=== PATIENT | female | born 1950 | race Caucasian/White ===

== ENCOUNTER 2022-10-03 18:00 | Emergency (ER) | payer OTHER, SELFPAY ==
[2022-10-03 18:05] VITALS: BP 176/86; PULSE 98; RESP 16; TEMP 36.7; O2SAT 98; BMI 18.0
--- NOTE | 2022-10-03 18:29 | ED.SKABFB ---
HPI - Skin/Abscess/Foreign Bdy General Chief complaint: Skin/Abscess/Foreign Body Stated complaint: right thumb injury/thinks infected Time Seen by Provider: 10/03/22 18:07 Source: patient Mode of arrival: Ambulatory History of Present Illness HPI narrative: 72-year-old woman with no significant medical history no provider in town and sees a care provider through [facility] comes in complaining of some pain on the right side. She initially noticed some swelling on the pad of the thumb on September 20 became more tender more swollen eventually seem to resolve with the resolution of the swelling she is having some peeling of the skin of her distal thumb. Over the last 2 days she is noticed slight increase in pain, slight redness and now has some mild discoloration under the nail bed just in the area of the cuticle of the thumb. She is very worried about the skin peeling, she notes that today she maybe had a low-grade fever. No joint pain, vesicular lesions, other rashes, axillary adenopathy. No cough, chest pain, palpitations, nausea, vomiting, abdominal pain. Related Data Previous Rx's Medication Instructions Recorded cephalexin 500 mg capsule 500 mg PO TID #20 caps 10/03/22 Allergies Allergy/AdvReac Type Severity Reaction Status Date / Time acetaminophen [From Vicodin] Allergy Verified 10/03/22 18:30 bee venom protein (honey bee) Allergy Verified 10/03/22 18:30 codeine Allergy Verified 10/03/22 18:30 cyclobenzaprine Allergy Verified 10/03/22 18:30 gentamicin Allergy Verified 10/03/22 18:30 hydrocodone [From Vicodin] Allergy Verified 10/03/22 18:30 iodine Allergy Verified 10/03/22 18:30 naproxen Allergy Verified 10/03/22 18:30 Review of Systems Review of Systems Narrative: Remainder of complete review of systems is otherwise unremarkable except for that included in the HPI. Patient History Social History Smoking Status: Never smoker Smoking Status: Never smoker Substance Use Type: does not use Exam Initial Vital Signs Initial Vital Signs: Vital Signs Temperature 98.1 F 10/03/22 18:05 Pulse Rate 98 H 10/03/22 18:05 Respiratory Rate 16 10/03/22 18:05 Blood Pressure 176/86 H 10/03/22 18:05 Pulse Oximetry 98 10/03/22 18:05 Oxygen Delivery Method 10/03/22 18:05 General: Alert appropriate in no acute distress Respiratory: Able to speak in full sentences, no obvious respiratory distress Skin: No obvious rashes, warm and dry Neurologic: Grossly intact no obvious asymmetries or abnormalities Psych: appropriate insight and affect, cooperative Extremity: Pad of the right thumb is very minimally erythematous came mild skin scaling. There is 2 mm area of discoloration just at the cuticle of the thumb. There is no lymphangitic streaking there is only minimal swelling. No axillary adenopathy. Course Orders Ordered: Discontinued Medications Cefazolin Sodium (Cephalexin 250 Mg Prepack) 1 bottle MISC SEEINSTR ONE Stop: 10/03/22 18:43 Last Admin: 10/03/22 18:58 Dose: 1 bottle Cephalexin HCl (Cephalexin 250 Mg Capsule) 500 mg PO NOW ONE Stop: 10/03/22 18:43 Last Admin: 10/03/22 18:57 Dose: 500 mg Vital Signs Vital signs: Vital Signs - 8 hr 10/03/22 18:05 10/03/22 19:04 Temperature 98.1 F Pulse Rate 98 H 75 Respiratory Rate 16 18 Blood Pressure 176/86 H Pulse Oximetry 98 98 Oxygen Delivery Method Room Air Room Air MDM - Skin/Abscess/Foreign Bdy MDM Narrative Medical decision making narrative: 72-year-old woman comes in with right thumb swelling concern for infection. Clinical exam is most consistent with a felon and she is started on Keflex with instructions to follow-up with hand surgery if things are not improving or the emergency department if she has additional issues. Differential diagnosis: Herpetic gay, subcutaneous abscess, synovial space infection(no joint tenderness or swelling on physical exam), septic arthritis, necrotizing fasciitis Findings reviewed with patient, because tomorrow will likely be a holiday with difficult pharmacy access she is given antibiotics in the emergency department enough to last through tomorrow with written prescription young that She is safe for discharge home Discharge Plan Departure Patient Disposition: Home Clinical Impression: Felon of finger of right hand Instructions: DI for Felon Activity Restrictions/Additional Instructions: Thank you for coming in today It appears that you have an infection deep in the soft portion of the tip of your finger. I am going to have you take 7 days of Keflex. 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 With the capsules that are going home with you, you will need to take 2 3 times a day. I have given you a written prescription. I am not sure of pharmacies will be open tomorrow, typically there is at least 1 in [place] that is open on official holidays. Please feel free to call around to find that one. If you feel that the infection is getting worse or you have further questions, following up with a hand surgeon specialist may be very appropriate. Dr. Madera is 1 of our hand green building design specialist who is on-call tommy. You can schedule an appointment with him at [phone], [facility]. If you find that you are getting worse or develop any new symptoms, please feel free to return to the emergency department for further evaluation. Prescriptions: New cephalexin 500 mg capsule 500 mg PO TID Qty: 20 0RF Visit Report Forms: Patient Portal/API
[2022-10-03] MEDS: cephALEXin 250 MG CAPSULE 500 MG PO (18:57)
[2022-10-03] MEDS: cephALEXin 250 MG PREPACK 1 BOTTLE MISC (18:58)
[2022-10-03 19:04] VITALS: PULSE 75; RESP 18; O2SAT 98
== END 2022-10-03 19:04 | disposition home or self-care (01) ==
PROVIDERS: Emergency Provider Emergency Medicine
DX: L03.011 Cellulitis of right finger (principal)
CPT/HCPCS: 99283